=== PATIENT | female | born 1990 | race Caucasian/White ===

== ENCOUNTER 2018-09-20 00:29 | Emergency (ER) | payer OTHER ==
[~2018-09-20] VITALS: Ht 165.1 cm; Wt 69.8 kg
[~2018-09-20 00:29] MED LIST: AMOXIL 875 MG875 M1 PO; BIRTH CONTROL PO; MECLIZINE HCL12.5 MG PO; SINGULAIR 10 MG10 M1 PO
[2018-09-20] MEDS ORDERED: ALLEGRA ALLERG180 MG PO (00:40)
[2018-09-20] MEDS ORDERED: PRILOSEC 20 MG20 MG PO (00:41)
[2018-09-20 02:15] VITALS: BP 122/85
== END 2018-09-20 02:15 | disposition home or self-care (01) ==
LOC: M.ERS 00:29
DX: R11.2 Nausea with vomiting, unspecified (principal); T45.0X5A Adverse effect of antiallergic and antiemetic drugs, initial encounter; Z88.2 Allergy status to sulfonamides; Y92.89 Other specified places as the place of occurrence of the external cause